=== PATIENT | male | born 1970 | race Caucasian/White ===

== ENCOUNTER 2018-09-24 12:16 | Emergency (ER) | payer OTHER ==
--- NOTE | 2018-09-24 12:34 | ED Physician Documentation ---
History of Present Illness - Stated complaint Stated Complaint: BILAT NUMB FEET/POST OP - Chief complaint Chief Complaint: Ext Problem - History obtained from History obtained from: Patient - History of Present Illness Timing: Yesterday - Additonal information Additional information: This is a 48-year-old man who presents with his complaints that he had a spinal AVM embolized and then laminectomy performed 2 weeks ago L4-S1 at [facility]. He was in the hospital for 3 nights. Immediately postop he had a little bit of numbness on the top of his right foot that kind of resolved he is here now because he is got a stocking glove distribution of feeling of decreased sensation from about mid calf all the way down to his feet.Yesterday he had a little bit more back pain than he is been experiencing since he had the surgery but it seems to be better today. He is taking only Tylenol and using CBD oil. He quit taking the oxycodone and muscle relaxer last week. Is not taking any other supplements. He denies weakness in the leg and has had no urinary incontinence.He is scheduled to see the neurosurgeon on ThursdayFor follow-up.He has had no fever. Review of Systems Constitutional: denies: Fever Skin: reports: Other (The wound from surgery on his lower back is healing well.). denies: Rash, Lesions Musculoskeletal: reports: Back pain (Postsurgical) Neurologic: reports: Numbness (Mid calf to feet bilaterally.). denies: Generalized weakness, Focal weakness PD PAST MEDICAL HISTORY - Past Medical History Neuro: Other (Lumbar spinal AVM) - Past Surgical History Neuro: Other (L4-S1 laminectomy) - Present Medications Home Medications: Ambulatory Orders Medication Instructions Recorded Confirmed Acetaminophen [Tylenol] 650 mg PO Q6H PRN 09/24/18 09/24/18 - Allergies Allergies/Adverse Reactions: Allergies Allergy/AdvReac Type Severity Reaction Status Date / Time ketamine Allergy Hallucinati Verified 09/24/18 12:27 ons PD ED PE NORMAL - Vitals Vital signs reviewed: Yes - General General: Alert and oriented X 3, No acute distress, Well developed/nourished - Back Back: Other (The surgical wound appears to be healing well without any associated erythema or drainage. There is just still some minor edema.) - Derm Derm: Normal color, Warm and dry - Neuro Neuro: Alert and oriented X 3, gate technician 2-12 intact, No motor deficit, No sensory deficit, Normal speech, Other (Patient has 5 out of 5 great toe extension, ankle dorsiflexion and Plantar flexion;Sensation is intact light touch and pinprick throughout the lower extremity;Reflexes are 2+ and symmetrical at the patella and Achilles bilaterally.Patient ambulated without any weakness or foot drop.) Results - Vitals Vitals: Vital Signs - 24 hr 09/24/18 09/24/18 12:24 13:10 Temperature 36.8 C Heart Rate 80 Respiratory 18 17 Rate Blood Pressure 131/87 H O2 Saturation 100 Oxygen O2 Source Room air PD MEDICAL DECISION MAKING - ED course ED course: This patient is completely neurologically intact with ability to discriminate pinprick from light touch on the lower extremities, symmetrical reflexes and good strength. I do not see an indication for emergent imaging at this time and I did discuss case with Dr. Moreau,Who is on-call for the patient's neurosurgeon at [facility]. He is in agreement and felt patient could follow-up at his routine visit on Thursday next week. Patient is counseled that should he develop urinary incontinence, significant progression of the numbness or weakness including foot drop he should return to the emergency department for further evaluation. Departure - Departure Disposition: Home, Self Care Clinical Impression: Bilateral leg paresthesia Condition: Good Instructions: ED Paraesthesias Follow-Up: NALINI EDWARDS MD [Physician No Access] - Comments: I did discuss your case with the on-call neurosurgeon for Dr. Edwards. They would like for you to keep your appointment on Thursday with Dr. Edwards. Return for reevaluation if you have significant worsening of the numbness, you have weakness in the lower extremities or tripping on your toes. You have any urinary or bowel incontinence.
[2018-09-24 14:21] VITALS: BP 135/78
== END 2018-09-24 14:20 | disposition home or self-care (01) ==
LOC: ED 12:16
DX: R20.2 Paresthesia of skin (principal); Z98.890 Other specified postprocedural states
CPT/HCPCS: 99282; 99283

== ENCOUNTER 2019-10-02 09:21 | Outpatient (CLI) | payer OTHER ==
--- NOTE | 2019-10-02 11:32 | XRAY Report ---
Reason: LEFT SIDED CHEST PAIN Procedure Date: 10/02/2019 Accession Number: [id number] / [id number] Procedure: XR - Chest 2 View X-Ray CPT Code: 06593 Final Report FULL RESULT: PROCEDURE: Chest 2 View X-Ray INDICATIONS: LEFT SIDED CHEST PAIN TECHNIQUE: 2 view(s) of the chest. COMPARISON: Same day rib radiographs. FINDINGS: Surgical changes and devices: None. Lungs and pleura: No pleural effusions or pneumothorax. Lungs are clear. Mediastinum: Mediastinal contours are normal. Heart size is normal. Bones and chest wall: No suspicious bony abnormalities. Soft tissues appear unremarkable. IMPRESSION: No acute cardiopulmonary abnormality. Reviewed by: Catarino Puentes MD on 10/02/2019 11:30 AM PDT Approved by: Catarino Puentes MD on 10/02/2019 11:30 AM PDT Station ID: [id number]
--- NOTE | 2019-10-02 11:35 | XRAY Report ---
Reason: LEFT SIDE RIB PAIN Procedure Date: 10/02/2019 Accession Number: [id number] / [id number] Procedure: XR - Ribs 2 View LT CPT Code: Final Report FULL RESULT: PROCEDURE: Ribs 2 View LT INDICATIONS: LEFT SIDE RIB PAIN TECHNIQUE: 4 views of the left ribs were acquired. 2 views of the right ribs. COMPARISON: Same day CXR. FINDINGS: Surgical changes and devices: None. Bones and chest wall: No displaced left rib fracture. Costochondral calcification. No fractures or dislocations. No suspicious bony lesions. Postsurgical change of the L5 vertebral body partially visualized. Overlying soft tissues appear unremarkable. Lungs and pleura: The visualized lung appears clear. No pleural effusions or pneumothorax are visible. IMPRESSION: No displaced left rib fracture. Reviewed by: Catarino Puentes MD on 10/02/2019 11:34 AM PDT Approved by: Catarino Puentes MD on 10/02/2019 11:34 AM PDT Station ID: [id number]
--- NOTE | 2019-10-02 11:49 | Ultrasound Report ---
Reason: LUQ PAIN Procedure Date: 10/02/2019 Accession Number: [id number] / [id number] Procedure: US - Abdomen Complete CPT Code: Final Report FULL RESULT: PROCEDURE: Abdomen Complete INDICATIONS: LUQ PAIN TECHNIQUE: Real-time scanning was performed of the abdominal and retroperitoneal organs, with image documentation. COMPARISON: None. FINDINGS: Liver: Normal in size. Increased in echogenicity and heterogeneous echotexture. Hypoechoic focus in the right lobe of the liver inferiorly measuring up 1.1 cm. Gallbladder: Gallbladder is nondistended. Gallstone measuring 2 cm. No gallbladder wall thickening. No pericholecystic fluid. Negative sonographic Farrell sign. Biliary ducts: Intrahepatic bile ducts are non-dilated. Extrahepatic bile duct caliber measures 7 mm. Normal is 6-7 mm or less in diameter, or 10 mm or less post-cholecystectomy. Pancreas: Visualized portions of the pancreas are sonographically normal. Spleen: Spleen is normal in size and homogeneous in echotexture. Kidneys: Kidneys are normal in size and echotexture. Right kidney measures 12.4 cm long; left kidney measures 11.5 cm long. No hydronephrosis or nephrolithiasis. 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 Right kidney extrarenal pelvis. No solid masses. Left kidney superior pole cyst with a thin septation measuring 1.2 cm. Aorta: Visualized aorta is normal in caliber at less than 3 cm. Iliacs: Proximal common iliac arteries are normal in caliber at less than 2.5 cm. IVC: Intrahepatic inferior vena cava is patent. Miscellaneous: No free abdominal fluid. IMPRESSION: 1. Increased echogenicity and heterogeneous echotexture of the hepatic parenchyma. This is most commonly seen in hepatic steatosis. Other forms of hepatocellular disease could have a similar appearance. 2. Incidental hypoechoic focus in the right lobe of liver measuring 1.1 cm is indeterminate but could represent a hemangioma. This can be further characterized with liver MRI or multiphase liver CT. 3. No acute cholecystitis. Large gallstone measuring 2 cm. 4. Left kidney cyst with a thin septation measuring 1.2 cm. Reviewed by: Catarino Puentes MD on 10/02/2019 11:47 AM PDT Approved by: Catarino Puentes MD on 10/02/2019 11:47 AM PDT Station ID: [id number]
== END 2019-10-02 09:22 | disposition home or self-care (01) ==
LOC: DI 09:21
DX: R07.81 Pleurodynia (principal); R07.9 Chest pain, unspecified; R10.12 Left upper quadrant pain; K80.20 Calculus of gallbladder without cholecystitis without obstruction; N28.1 Cyst of kidney, acquired
CPT/HCPCS: 71046; 76700

== ENCOUNTER 2020-08-20 08:00 | Outpatient (CLI) | payer OTHER ==
--- NOTE | 2020-08-20 16:33 | XRAY Report ---
PROCEDURE: Hip w/Pelvis 2-3V RT INDICATIONS: RIGHT HIP PAIN TECHNIQUE: AP pelvis with lateral view(s) of the bilateral hip(s). COMPARISON: None. FINDINGS: Bones: No fractures or dislocations. Pelvic ring appears intact. No suspicious bony lesions. Ther e is mild hip joint space narrowing and periarticular osteophyte formation bilaterally. Curvilinear h igh density material at the L5 level is present, Possibly indicating embolic material. Soft tissues: The visualized bowel gas pattern is normal. No suspicious soft tissue calcifications. IMPRESSION: Osteoarthritis. No acute fracture. No osseous lesion. If symptoms and/or clinical suspic ion for pathology continue, further assessment with repeat plain films, or advanced imaging (e.g., CT , MRI, or bone scan) is recommended for further assessment. Reviewed by: Dia Álvarez MD on 08/20/2020 4:32 PM PDT Approved by: Dia Álvarez MD on 08/20/2020 4:32 PM PDT Station ID: [id number]
== END 2020-08-20 23:59 | disposition home or self-care (01) ==
LOC: DI.S 08:00
PROVIDERS: ATTEND Physician Assistant
DX: M16.11 Unilateral primary osteoarthritis, right hip (principal)

== ENCOUNTER 2021-05-24 16:22 | Outpatient (CLI) | payer OTHER ==
--- NOTE | 2021-05-24 18:46 | XRAY Report ---
PROCEDURE: Knee 4 View RT, x-ray INDICATIONS: EFFUSION, RIGHT KNEE; KNEE PAIN, RIGHT TECHNIQUE: 4 views of the right knee and single AP view of the left knee were obtained COMPARISON: None. FINDINGS: Bones: Mild medial compartment joint space narrowing noted associated with moderate joint effusion. N o evidence of fracture. Soft tissues: No suspicious soft tissue calcifications. IMPRESSION: 1. Mild medial compartment osteoarthritis and moderate joint effusion Reviewed by: Dave Felipe MD on 05/24/2021 5:44 PM AKST Approved by: Dave Felipe MD on 05/24/2021 5:44 PM AKST Station ID: [id number]
== END 2021-05-24 23:59 | disposition home or self-care (01) ==
LOC: DI.S 16:22
PROVIDERS: ATTEND Physician Assistant
DX: M17.11 Unilateral primary osteoarthritis, right knee (principal); M25.461 Effusion, right knee